=== PATIENT | male | born 1960 | race Caucasian/White ===

== ENCOUNTER 2020-04-02 12:24 | Emergency (ER) | payer SELFPAY ==
[2020-04-02] MEDS ORDERED: Lidocaine 1% 20 ML MDV INJECT ONE (12:40)
--- NOTE | 2020-04-02 12:51 | EDM.PDOC ---
ED HPI GENERAL MEDICAL PROBLEM - General Chief Complaint: Lower Extremity Injury/Pain Stated Complaint: laceration Time Seen by Provider: 04/02/20 12:40 Source of Information: Reports: Patient History Limitations: Reports: No Limitations - History of Present Illness INITIAL COMMENTS - FREE TEXT/NARRATIVE: Was moving a piece of tin and he cut his lateral right calf. He has 9 cm laceration that is gapping and bleeding. It is through the skin and part of the fat layer. He denies any numbness or tingling. He has good sensation noted distally. Onset: Today Location: Reports: Lower Extremity, Right - Related Data Allergies Allergy/AdvReac Type Severity Reaction Status Date / Time No Known Allergies Allergy Verified 04/02/20 12:25 Home Meds: Home Meds Aspirin [Halfprin] 81 mg PO DAILY 04/02/20 [History] Losartan Potassium 50 mg PO DAILY 04/02/20 [History] Omeprazole 40 mg PO DAILY 04/02/20 [History] Simvastatin [Zocor] 10 mg PO BEDTIME 04/02/20 [History] Tiotropium [Spiriva HandiHaler] 18 mcg INH DAILY 04/02/20 [History] metFORMIN HCl [Metformin HCl] 100 mg PO BID 04/02/20 [History] Past Medical History Cardiovascular History: Reports: High Cholesterol, Hypertension Respiratory History: Reports: Asthma, COPD Endocrine/Metabolic History: Reports: Diabetes, Type II Social & Family History - Family History Family Medical History: Noncontributory - Tobacco Use Smoking Status *Q: Current Every Day Smoker Review of Systems - Review of Systems Review Of Systems: See Below Constitutional: Reports: No Symptoms Respiratory: Reports: No Symptoms Cardiovascular: Reports: No Symptoms Skin: Reports: Wound (right lower leg) Neurological: Reports: No Symptoms ED EXAM, GENERAL - Physical Exam Exam: See Below Exam Limited By: No Limitations General Appearance: Alert, WD/WN, No Apparent Distress Cardiovascular: Regular Rate, Rhythm Neurological: Alert, Oriented Skin Exam: Warm, Dry, Intact, Wound/Incision (9 cm laceration to the right calf.) ED TRAUMA EXTREMITY PROCEDURES - Laceration/Wound Repair Right Lower Leg Lac/Wound Length In cm: 9 Appearance: Subcutaneous, Linear Anesthetic Type: Local Local Anesthesia - Lidocaine (Xylocaine): 1% Plain Local Anesthetic Volume: Other (10ml) Skin Prep: Saline Closed With: Sutures Suture Size: 4-0 # of Sutures: 17 Suture Type: Nylon, Interrupted, Simple Tetanus Status Addressed: Yes Complications: No Course - Vital Signs Last Recorded V/S: Last Vital Signs Temp 99 F 04/02/20 12:45 Pulse 117 H 04/02/20 12:45 Resp 18 04/02/20 12:45 BP 153/85 H 04/02/20 12:45 Pulse Ox 98 04/02/20 12:45 - Orders/Labs/Meds Meds: Medications Discontinued Medications Generic Name Dose Route Start Last Admin Trade Name Kostas PRN Reason Stop Dose Admin Lidocaine HCl 20 ml 04/02/20 12:40 04/02/20 13:11 Xylocaine 1% INJECT 04/02/20 12:41 20 ml ONETIME ONE Administration Neomycin/Polymyxin/Bacitracin 1 each 04/02/20 12:41 04/02/20 13:11 Triple Antibiotic Oint TOP 04/02/20 12:42 1 each ONETIME ONE Administration Departure - Departure Time of Disposition: 13:15 Disposition: Home, Self-Care 01 Condition: Good Clinical Impression: Laceration - Discharge Information *PRESCRIPTION DRUG MONITORING PROGRAM REVIEWED*: Not Applicable *COPY OF PRESCRIPTION DRUG MONITORING REPORT IN PATIENT BANDAR: Not Applicable Forms: ED Department Discharge Additional Instructions: may shower but do not soak in tub keep area clean and dry change dressing daily as needed with antibiotic ointment and dressing tylenol or advil as needed for discomfort sutures out in about 10 days. Call clinic for appt [phone] If any sign of infection call clinic for appt [phone] Sepsis Event Note (ED) - Focused Exam Vital Signs: Vital Signs Temp Pulse Resp BP Pulse Ox 04/02/20 12:45 99 F 117 H 18 153/85 H 98 - Problem List & Annotations (1) Laceration SNOMED Code(s): 684599732 Code(s): UAV0385 - Status: Acute - Problem List Review Problem List Initiated/Reviewed/Updated: Yes
[2020-04-02] MEDS: Bacitracin/Neomycin/Polymyxin B Oint 0.9 GM U/D Packet TOP ONE (13:11)
== END 2020-04-02 13:30 | disposition home or self-care (01) ==
LOC: CC.ED 12:24
DX: S81.811A Laceration without foreign body, right lower leg, initial encounter (principal); E11.9 Type 2 diabetes mellitus without complications; I10 Essential (primary) hypertension; E78.00 Pure hypercholesterolemia, unspecified; J44.9 Chronic obstructive pulmonary disease, unspecified; F17.200 Nicotine dependence, unspecified, uncomplicated; Z79.82 Long term (current) use of aspirin; Z79.899 Other long term (current) drug therapy; Z79.84 Long term (current) use of oral hypoglycemic drugs; W26.9XXA Contact with unspecified sharp object(s), initial encounter
CPT/HCPCS: 12004; 99282; J2001

== ENCOUNTER → 2020-05-29 | Day surgery (SDC) | payer MEDICAID ==
[~2020-05-29] MED LIST: Ketamine 200 MG/20 ML MDV IV ONE; Propofol 200 MG/20 ML SDV IV ONE; fentaNYL 100 MCG/2 ML SDV IV ONE
[2020-05-29] MEDS: Lactated Ringers 1,000 ML IV SCH (10:14)
--- NOTE | 2020-06-01 11:28 | OR ---
DATE OF OPERATION: 05/29/2020 PREOPERATIVE DIAGNOSIS: HISTORY OF POLYPS. POSTOPERATIVE DIAGNOSIS: HISTORY OF POLYPS. SURGEON: Reji Diaz MD PROCEDURE: FOLLOWING COLONOSCOPY WITH FORCEPS POLYP REMOVAL X1. ANESTHESIA: MAC. COMPLICATIONS: None. SPECIMEN: Tubular adenoma, cecum. FINDINGS: 1. Full-length colonoscopy. 2. Marginal prep. 3. Small tubular adenoma, 3-4 mm, cecal pouch. 4. Mild sigmoid diverticulosis. RECOMMENDATIONS: Followup colonoscopy in 5 years. INDICATIONS: The patient has a prior history of colonoscopy approximately 6 years ago where he had 2 or 3 polyps removed. He was due for a 5-year followup scope. DESCRIPTION OF PROCEDURE: The patient was prepped and draped, placed in the left lateral decubitus position. A lubricated Olympus colonoscope was inserted and easily advanced to the cecum. We were able to directly visualize the ileocecal valve and appendiceal orifice, the bowel prep was marginal. There was a lot of stool throughout the colon, most areas could be irrigated and suctioned, some could not. Smaller lesions possibly may have been missed. Upon withdrawal, right in the cecal pouch, the patient had a small flat 3-4 mm tubular adenoma, more sessile than anything, and we removed it with forceps biopsy x2. Ascending and transverse colon were unremarkable. The patient does have scattered diverticulosis throughout most of the left colon, concentrated in the sigmoid, as expected, mild in severity. No other polyps, masses, ulceration, bleeding sites were seen. No vascular abnormalities or signs of colitis. The rectal vault was benign. Retroflexion showed no perianal lesions. Air was suctioned and scope removed without complication. DAVID/MED /[id number]
== END ==
LOC: CC.SDS 10:01
PROVIDERS: ATTEND Family Medicine
DX: Z12.11 Encounter for screening for malignant neoplasm of colon (principal); K52.9 Noninfective gastroenteritis and colitis, unspecified; K57.30 Diverticulosis of large intestine without perforation or abscess without bleeding; J44.9 Chronic obstructive pulmonary disease, unspecified; I10 Essential (primary) hypertension; K21.9 Gastro-esophageal reflux disease without esophagitis; E78.5 Hyperlipidemia, unspecified; L30.9 Dermatitis, unspecified; F17.210 Nicotine dependence, cigarettes, uncomplicated; Z79.899 Other long term (current) drug therapy; E66.9 Obesity, unspecified; Z68.33 Body mass index [BMI] 33.0-33.9, adult; Z86.010 Personal history of colon polyps; Z98.890 Other specified postprocedural states
CPT/HCPCS: 45380; J2704; J3010; J7120